=== PATIENT | female | born 1985 | race Hispanic/Latino ===

== ENCOUNTER 2020-12-03 12:18 | Emergency (ER) | payer OTHER, SELFPAY ==
--- NOTE | 2020-12-03 13:25 | RAD ---
Exam: Chest one view HISTORY:Chest pain Comparison: 08/16/2020 FINDINGS: Cardiac silhouette: Normal Aorta: Unremarkable Pulmonary vessels: Normal Costophrenic angles: Clear LUNGS: No masses or consolidation. Pneumothorax: None Osseous abnormalities: None IMPRESSION: No acute cardiopulmonary process.
[2020-12-03 14:09] LABS: #Basophils 0.1 thou/uL (0.0-0.2); #Eosinphils 0.1 thou/uL (0.0-0.7); #Lymphocytes 2.4 thou/uL (1.20-3.40); #Monocytes 0.7 thou/uL (0.11-0.59); #Neutrophils 12.1 thou/uL (1.40-6.50); %Basophils 0.6 % (0.0-1.0); %Eosinophils 0.5 % (0.0-10.0); %Lymphocytes 15.3 % (21.0-51.0); %Monocytes 4.7 % (0.0-10.0); %Neutrophils 78.9 % (42.0-75.0); Hemoglobin 12.1 g/dL (12.0-16.0); Mean Corpuscular HGB CONC 35.4 g/dL (32.0-36.0); Mean Corpuscular Hemoglobin 30.1 pg (27.0-31.0); Mean Platelet Volume 7.6 fL (7.4-10.4); Platelet Count 376 thou/uL (130-400); Red Blood Cell (RBC) Count 4.02 mill/uL (4.20-5.40); White Blood Cell (WBC) Count 15.4 thou/uL (4.8-10.8)
[2020-12-03 14:29] LABS: ALT (SGPT) 16 U/L (8-55); AST (SGOT) 11 U/L (5-34); Albumin 3.7 g/dL (3.5-5.0); Alkaline Phosphatase 55 U/L (40-110); Anion Gap 16 mmol/L (10-20); BUN (Urea Nitrogen) 9 mg/dL (7.0-18.7); Bilirubin, Total 0.3 mg/dL (0.2-1.2); CK (CPK) 39 U/L (29-168); Calc. Creatinine Clearance 0 mL/min (70-130); Calcium 8.7 mg/dL (7.8-10.44); Carbon Dioxide 19 mmol/L (22-29); Chloride 105 mmol/L (98-107); Globulin 3.6 g/dL (2.4-3.5); Glucose 87 mg/dL (70-105); Potassium 3.8 mmol/L (3.5-5.1); Protein, Total 7.3 g/dL (6.0-8.3); Sodium 136 mmol/L (136-145)
== END 2020-12-03 16:37 | disposition home or self-care (01) ==
LOC: ERS 12:18
DX: O13.1 Gestational [pregnancy-induced] hypertension without significant proteinuria, first trimester (principal); O26.891 Other specified pregnancy related conditions, first trimester; R07.9 Chest pain, unspecified; Z3A.11 11 weeks gestation of pregnancy
CPT/HCPCS: 36415; 71045; 80053; 82550; 84484; 85025; 93005

== ENCOUNTER 2020-12-12 19:47 | Emergency (ER) | payer SELFPAY ==
--- NOTE | 2020-12-12 20:33 | RAD ---
Left forearm 2 views HISTORY: Fall. Injury. FINDINGS: The ulna is is intact. Comminuted, angulated fracture of the distal left radius noted and better detailed on dedicated wrist radiograph.
[2020-12-12] MEDS ORDERED: Ondansetron PF 4 MG/2 ML Vial ONE (20:44)
[2020-12-12] MEDS ORDERED: Morphine 4 MG/ML VIAL ONE (20:44)
--- NOTE | 2020-12-12 21:49 | RAD ---
LEFT WRIST RADIOGRAPHS THREE VIEWS: Date: 12-12-2020 PROVIDED CLINICAL HISTORY: Pain status post injury. FINDINGS: There is a comminuted intraarticular distal radial fracture with ulnar and slight posterior displacem ent of a distal fragment with respect to the proximal. No additional fracture is evident. IMPRESSION: Comminuted intraarticular distal radial fracture. POS: VICKI
--- NOTE | 2020-12-12 21:55 | RAD ---
LEFT HAND RADIOGRAPHS THREE VIEWS: Date: 12-12-2020 PROVIDED CLINICAL HISTORY: Pain status post injury FINDINGS: Distal radial fracture as described on concurrently performed wrist radiographs. Please see that repo rt. No additional fracture is evident. If there is persistent clinical concern, conservative manageme nt and follow up imaging are advised. IMPRESSION: As above. POS: VICKI
[2020-12-12] MEDS ORDERED: Ibuprofen 200 MG TAB ONE (21:56)
[2020-12-12] MEDS ORDERED: Ibuprofen 800 MG TAB ONE (21:56)
[2020-12-12] MEDS ORDERED: HYDROcodone/Acetaminophen 10/325 mg Tablet ONE (21:56)
== END 2020-12-12 22:05 | disposition home or self-care (01) ==
LOC: ERS 19:47
DX: S52.502A Unspecified fracture of the lower end of left radius, initial encounter for closed fracture (principal); W01.0XXA Fall on same level from slipping, tripping and stumbling without subsequent striking against object, initial encounter
CPT/HCPCS: 29125; 96374; 96375; J2270; J2405

== ENCOUNTER 2021-09-27 10:28 | Outpatient (CLI) | payer OTHER | END 2021-09-27 10:29 | disposition home or self-care (01) | LOC: BICULT 10:28 | PROVIDERS: ATTEND Family Medicine | DX: R10.2 Pelvic and perineal pain (principal) | CPT/HCPCS: 76856 ==